=== PATIENT | female | born 1960 | race Caucasian/White ===

== ENCOUNTER 2021-03-15 13:10 | Emergency (ER) | payer BC, MEDICAID, SELFPAY ==
--- NOTE | 2021-03-15 13:15 | XR_ITS ---
WS: [id number] Exam: XR elbow LT min 3V* [id number] Date/Time of Exam: 03/15/2021 1:24 PM Reason For Exam: trauma There is posterior dislocation of the proximal radius and ulna. No obvious acute fracture noted from images presented. XR/XR elbow LT min 3V* [id number] IMPRESSION: 1. Posterior dislocation of the proximal radius and ulna. No obvious fracture.
--- NOTE | 2021-03-15 13:15 | XR_ITS ---
WS: [id number] Exam: [place] [id number] Date/Time of Exam: 03/15/2021 1:24 PM Reason For Exam: trauma/fall No acute humeral fracture. Mild soft tissue calcification along the humeral head that may indicate bu rsitis or tendinitis. Partially visualized elbow dislocation. XR/[place] [address] IMPRESSION: 1. No acute humeral fracture. 2. Partially visualized elbow dislocation. 3. Probable tendinitis or calcific bursitis of the left shoulder.
--- NOTE | 2021-03-15 13:15 | XR_ITS ---
WS: [id number] Exam: XR shoulder LT min 2V* [id number] Date/Time of Exam: 03/15/2021 1:24 PM Reason For Exam: trauma/fall No fracture or dislocation. Mild soft tissue calcification along the humeral head suggesting calcific tendinitis or bursitis. 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 XR/XR shoulder LT min 2V* [id number] IMPRESSION: 1. No acute fracture or dislocation.
--- NOTE | 2021-03-15 13:16 | ED_ITS ---
Documented by User: YAEL Atkinson 03/15/21 14:28 HPI - Extremity Injury (Upper) General: Chief Complaint: Extremity Injury, Upper Stated Complaint: LEFT ELBOW INJURY Time Seen by Provider: 03/15/21 13:10 Source: patient, family and EMS Mode of arrival: EMS Limitations: other (cognitive delays) History of Present Illness: HPI narrative: Patient is a 60-year-old female who presents to ED today via EMS following a trip and fall while she was at [employer]. According to EMS patient tripped over a pallet and landed onto her left upper extremity. She was complaining of elbow and shoulder pain. No other injury sustained during the fall. Patient herself has cognitive delays with minimal verbal abilities. She is able to read lips. Sister arrives shortly after EMS and confirms trip and fall. MD complaint: injury to: left, shoulder, arm and elbow Onset (ago): minute(s) Other Extremity Injury: Left: elbow, arm and shoulder Other injuries: none Severity: severe Relieving factors: immobilization Exacerbating factors: movement of extremity Context: fall Associated symptoms: Reports no associated symptoms Review of Systems Eyes: Denies: change in vision Card: Denies: chest pain or palpitations Resp: Denies: dyspnea GI: Denies: abdominal pain, nausea or vomiting Musc: Reports: extremity pain (L humerus ) and joint pain (L shoulder/elbow); Denies: joint redness or joint warmth Neuro: Denies: headache(s) or dizziness Physical Exam Const: COMMON NORMALS: no acute distress, no limitations and alert GENERAL APPEARANCE: cooperative ORIENTATION/CONSCIOUSNESS: Yes Other orientation findings (at mental baseline per sister) HENMT: COMMON NORMALS: normocephalic and atraumatic HEAD & SCALP: normal to inspection, normocephalic and atraumatic FACE & SINUS: normal facial exam Neck/C-Spine: COMMON NORMALS: full ROM CERVICAL SPINE: Yes cervical ROM normal, No pain with cervical ROM, No Cervical spine tenderness and No Paracervical muscle tenderness Chest: COMMONS NORMALS: normal inspection of the chest and normal palpation of entire chest wall Resp: COMMON NORMALS: normal respiratory effort and clear to auscultation bilaterally AUSCULTATION: clear to auscultation bilaterally Cardio: COMMON NORMALS: regular rate and regular rhythm RATE: regular rate RHYTHM: regular rhythm Back/Pelvis: COMMON NORMALS: thoracic and lumbar spine normal to inspection and no thoracic nor lumbar tenderness Extremity: GENERAL: Yes normal exam except as noted LEFT UPPER EXTREMITY: Yes shoulder joint (reports tenderness to humeral head w/o deformity or dislocation appreciated) Left shoulder joint: Yes neurovascular exam (normal) and Yes elbow joint (severe tenderness to distal humerus/L elbow; cries/grimaces with palpation) Left elbow: Yes palpation (probable dislocation to elbow clinically), Yes ROM (virtually no ROM secondary to discomfort), Yes neurovascular exam (normal distal pulses and cap refill) and Yes other (hard to fully appreciate anatomy given her obesity) Neuro: SENSORIUM/ORIENTATION: Yes alert Skin: COMMON NORMALS: no rashes or lesions noted GENERAL SKIN EXAM: no rashes or lesions noted TRAUMA: no lacerations or abrasions Course Vital Signs: Vital signs: Vital Signs Temperature 98.1 F 03/15/21 13:20 Pulse Rate 78 03/15/21 14:41 Respiratory Rate 18 03/15/21 14:41 Blood Pressure 198/108 03/15/21 14:41 Pulse Oximetry 98 03/15/21 14:41 MDM - Extremity Injury (Upper) MDM Narrative: Medical decision making narrative: Patient arrives here via EMS with left upper extremity pain/injury following a trip and fall. XRs obtained showing a left posterior elbow dislocation. Consent forms obtained for conscious sedation/reduction. Sedation and procedure completed along with Dr. Cummins. Please see his notes for sedation/procedure documentation. XR confirmation obtained following reduction. Patient will be placed in a sling and will have her follow-up with orthopedics. Imaging Data^: XR L elbow: Radiologist's impression: [address] [address] XRay Report Signed Patient: Elvira Bonds Unit #: [id number] : 1960 Age/Sex: 60 / F ADM Date: 03/15/21 Loc: ER Room/Bed: Attending Dr: Ordering Provider/Ordering MD: Autumn Joe Date of Service: 03/15/21 Procedure(s): XR elbow LT min 3V* 29903 Accession Number(s): [id number] Report Number: [id number] WS: [email or web address] Exam: XR elbow LT min 3V* [id number] Date/Time of Exam: 03/15/2021 1:24 PM Reason For Exam: trauma There is posterior dislocation of the proximal radius and ulna. No obvious acute fracture noted from images presented. XR/XR elbow LT min 3V* 00802 IMPRESSION: 1. Posterior dislocation of the proximal radius and ulna. No obvious fracture. Dictated By: Konrad Luciano DO Signed By: Konrad Luciano DO Signed Date/Time: 03/15/21 1344 DD/ 1343 XR L humerus: Radiologist's impression: [employer] [address] [facility] [place] [address] XRay Report Signed Patient: Elvira Bonds Unit #: [id number] : 1960 Age/Sex: 60 / F ADM Date: 03/15/21 Loc: ER Room/Bed: Attending Dr: Ordering Provider/Ordering MD: Autumn Joe Date of Service: 03/15/21 Procedure(s): [place] [address] Accession Number(s): [id number] Report Number: [id number] WS: [email or web address] Exam: [place] [address] Date/Time of Exam: 03/15/2021 1:24 PM Reason For Exam: trauma/fall No acute humeral fracture. Mild soft tissue calcification along the humeral head that may indicate bursitis or tendinitis. Partially visualized elbow dislocation. XR/[place] [address] IMPRESSION: 1. No acute humeral fracture. 2. Partially visualized elbow dislocation. 3. Probable tendinitis or calcific bursitis of the left shoulder. Dictated By: Konrad Luciano DO Signed By: Konrad Luciano DO Signed Date/Time: 03/15/21 1343 DD/ 1341 XR L shoulder: Radiologist's impression: [employer] [facility].[place], [place] [address]SHiv ReportSigned Patient: Elvira Bondsit #: [id number]: 1960Acct#:[id number]/Sex: 60 / FADM Date: 03/15/21Loc: ERRoom/Bed:Attending Dr: Ordering Provider/Ordering MD: Autumn Joe Date of Service: 03/15/21 Procedure(s): XR shoulder LT min 2V* 29798 Accession Number(s): [id number] Report Number: [id number] WS: [email or web address] Exam: XR shoulder LT min 2V* [id number] Date/Time of Exam: 03/15/2021 1:24 PM Reason For Exam: trauma/fall No fracture or dislocation. Mild soft tissue calcification along the humeral head suggesting calcific tendinitis or bursitis. 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 XR/XR shoulder LT min 2V* 89943 IMPRESSION: 1. No acute fracture or dislocation. Dictated By:Santos Dave By:Santos Dave Date/Khurram e:03/15/21 1347DD/ 1344 Discharge Plan Discharge Patient Disposition: Home Clinical Impression: Dislocation of left elbow Qualifiers: Encounter type: initial encounter Qualified Code(s): S53.105A - Unspecified dislocation of left ulnohumeral joint, initial encounter Condition: Stable Prescriptions: New hydrocodone-acetaminophen 5-325 mg tablet 1 tab PO Q6H PRN (Reason: pain) Qty: 14 RF: 0 No Action lisinopril 20 mg tablet 20 mg PO QAM RF: 0 famotidine 40 mg tablet 40 mg PO QAM RF: 0 Discharge Orders: Discharge ED (Routine); Ordered 03/15/21 Ordered By: Livia Cummins Referrals: Bassem Chappell MD [Physician] - 1-3 days Genet Latham [Primary Care Provider] - Discharge Diet: Advance as tolerated Discharge Activity: Resume usual activity Patient Instructions: Dislocation - Elbow, Elbow Dislocation (ED), Closed Reduction (ED), Opioid Safety Activity Restrictions/Additional Instructions: [facility] is committed to fighting the nationwide opiate epidemic. We are providing ALL patients with information regarding opiate safety. If you received opiate pain medication during your stay or if you received a prescription for opiate pain medication-please review this handout. If not, you may disregard. Thank you. As we discussed case management should contact you shortly to set you up with your follow-up orthopedic appointment. Continue to wear sling until this appointment and told otherwise by specialist. Patient may take Tylenol and/or Ibuprofen for discomfort as well as ice. If pain cannot be controlled by OTC medications she may take the prescribed pain medications as directed. Coding Level of Care Code ED [employer] for [facility] Fwadam Exam Comprehensive Documented by User: Livia Cummins MD 03/15/21 14:51 HPI - Extremity Injury (Upper) General: Chief Complaint: Extremity Injury, Upper Stated Complaint: LEFT ELBOW INJURY Time Seen by Provider: 03/15/21 13:10 Procedures Orthopedic Joint Reduction Joint #1: Time Out Performed: Yes Side: left Joint Reduction Location: elbow Analgesia: procedural sedation Technique used: traction/counter-traction Post-reduction neuro exam: intact Post-reduction vascular: intact Post Reduction X-Ray Obtained: Yes Post Reduction X-Ray Results: reduced Splint Applied: Yes Patient Tolerated Procedure: well and no complications Procedural Sedation Indication: fracture/dislocation reduction ASA Class: II Time of Last PO Intake: 11:05 Preparation: diagnostic cardiac sonographer applied, pulse oximeter, supplemental O2 applied, suction/airway equipment at bedside and IV secured IV Propofol dose (mg): 100 Patient Tolerated Procedure: well Complications: none Course Vital Signs: Vital signs: Vital Signs Temperature 98.1 F 03/15/21 13:20 Pulse Rate 78 03/15/21 14:41 Respiratory Rate 18 03/15/21 14:41 Blood Pressure 198/108 03/15/21 14:41 Pulse Oximetry 98 03/15/21 14:41 MDM - Extremity Injury (Upper) MDM Narrative: Medical decision making narrative: Saw patient with the above midlevel also assisted in conscious sedation and reduction of her elbow patient tolerated reduction well stable for discharge to follow-up with Ortho. Discharge Plan Discharge Patient Disposition: Home Clinical Impression: Dislocation of left elbow Qualifiers: Encounter type: initial encounter Qualified Code(s): S53.105A - Unspecified dislocation of left ulnohumeral joint, initial encounter Condition: Stable Prescriptions: New hydrocodone-acetaminophen 5-325 mg tablet 1 tab PO Q6H PRN (Reason: pain) Qty: 14 RF: 0 No Action lisinopril 20 mg tablet 20 mg PO QAM RF: 0 famotidine 40 mg tablet 40 mg PO QAM RF: 0 Discharge Orders: Discharge ED (Routine); Ordered 03/15/21 Ordered By: Livia Cummins Referrals: Bassem Chappell MD [Physician] - 1-3 days Genet Latham [Primary Care Provider] - Discharge Diet: Advance as tolerated Discharge Activity: Resume usual activity Patient Instructions: Dislocation - Elbow, Elbow Dislocation (ED), Closed Reduction (ED), Opioid Safety Activity Restrictions/Additional Instructions: [facility] is committed to fighting the nationwide opiate epidemic. We are providing ALL patients with information regarding opiate safety. If you received opiate pain medication during your stay or if you received a prescription for opiate pain medication-please review this handout. If not, you may disregard. Thank you. As we discussed case management should contact you shortly to set you up with your follow-up orthopedic appointment. Continue to wear sling until this appointment and told otherwise by specialist. Patient may take Tylenol and/or Ibuprofen for discomfort as well as ice. If pain cannot be controlled by OTC medications she may take the prescribed pain medications as directed. Coding Level of Care Code ED Printmaker for Micki Frederick Exam Comprehensive
[2021-03-15 13:20] VITALS: BP 184/107; PULSE 78; RESP 20; TEMP 36.7; O2SAT 98; BMI 42.9
[2021-03-15] MEDS: morphine 4 mg/mL SDV 1 mL IVP (13:49)
[2021-03-15] MEDS: ondansetron 2 mg/ML SDV 2 mL 4 MG IVP (14:10)
[2021-03-15] MEDS: propofol 10 mg/mL SDV 20 mL 100 MG IVP (14:10)
--- NOTE | 2021-03-15 14:11 | PC.NURSE ---
Elbow displacement reduced by Dr. Cummins under concious sedation. Respiratiory therapist Christy. J Luis RN. YAEL Leyva assisting. Pt received total of 100mcg of propofol. No issues identified.
--- NOTE | 2021-03-15 14:13 | XR_ITS ---
WS: [email or web address] Exam: XR elbow LT 2V [id number] Date/Time of Exam: 03/15/2021 2:17 PM Reason For Exam: post reduction; one view Previously noted elbow dislocation appears to have been reduced from the lateral projection. No AP vi ew was included in the series. Probable small joint effusion noted. Recommendations: An AP view of the elbow is suggested as soon as the patient's condition will allow. XR/XR elbow LT 2V 89504 IMPRESSION: 1. From the lateral projection the previously noted elbow dislocation appears t o have been reduced.
[2021-03-15 14:41] VITALS: BP 198/108; PULSE 78; RESP 18; O2SAT 98
--- NOTE | 2021-03-15 16:09 | DCPLANNER ---
manager track had message to schedule a follow up appointment for patient with ortho. manager track called the ortho clinic, spoke with Diane, gave clinic patients information. manager track was told that patients information would be printed and reviewed. Clinic will call patient with appointment information.
--- NOTE | 2021-03-17 11:33 | DCPLANNER ---
Patient has a follow up appointment scheduled for Sunday, March 28, 2021 at 11:[address] Chappell at [facility]. Clinic will call patient with appointment information.
--- NOTE | 2021-04-21 09:14 | DCPLANNER ---
Patient had a follow up appointment scheduled for 03.28.[address] Chappell at [facility] - patient did attend appointment.
== END 2021-03-15 14:43 | disposition home or self-care (01) ==
PROVIDERS: Emergency Provider Physician Assistant; PCP Nurse Practitioner Family
DX: S53.105A Unspecified dislocation of left ulnohumeral joint, initial encounter (principal); W01.0XXA Fall on same level from slipping, tripping and stumbling without subsequent striking against object, initial encounter; Y92.512 Supermarket, store or market as the place of occurrence of the external cause
CPT/HCPCS: 73030; 73060; 73070; 73080; 96374; 96375; 99283; J2270; J2405; J2704

== ENCOUNTER → 2021-03-28 10:59 | Outpatient (BNVA) | payer BC, MEDICAID, SELFPAY | PROVIDERS: PCP Nurse Practitioner Family; Referring Provider Physician Assistant; Visit Provider Orthopaedic Surgery | DX: S53.105D Unspecified dislocation of left ulnohumeral joint, subsequent encounter; W01.0XXD Fall on same level from slipping, tripping and stumbling without subsequent striking against object, subsequent encounter | CPT/HCPCS: 73080 ==

== ENCOUNTER → 2021-04-18 10:38 | Outpatient (BNVA) | payer BC, MEDICAID, SELFPAY | PROVIDERS: PCP Nurse Practitioner Family; Visit Provider Orthopaedic Surgery | DX: S53.105D Unspecified dislocation of left ulnohumeral joint, subsequent encounter (principal); X58.XXXD Exposure to other specified factors, subsequent encounter | CPT/HCPCS: 73080 ==